=== PATIENT | male | born 1985 | race Caucasian/White ===

== ENCOUNTER 2018-04-06 03:01 | Emergency (ER) | payer MEDICARE, SELFPAY ==
[2018-04-06 03:02] VITALS: BP 115/79; PULSE 95; RESP 17; TEMP 36.8; O2SAT 97; BMI 23.1
--- NOTE | 2018-04-06 03:49 | ED.DCSUM_ITS ---
- ER Visit Summary Date of Service: 04/06/18 Chief Complaint: Bug bite History of Present Illness: The patient is a 33 M presenting for evaluation due to concern for bug bite. Patient states that couple of days ago he was exposed to multiple ticks. He states that he got at least 3 or 4 of them off of him, but one did actually embedded in his left underarm. He reports that in the last couple days he has been having some subjective malaise nausea but denies any presence of fevers. He does endorse that he has been having some myalgias associated with this. He was concerned tonight because he noticed a potential bite on his left posterior shoulder. He does not remember being bitten by anything there, but states that there is a burning sensation in that area. He denies any palpitations syncope numbness or weakness. Review of systems otherwise negative. Physical Examination: Vital signs are within normal limits, patient is afebrile. General: Patient is well-nourished well-developed and in no acute distress. Head: Normocephalic, atraumatic Eyes: Pupils equal round and reactive bilaterally, extra occular motion intact bialterally ENT: Moist mucous membranes Neck: Supple, no lymphadenopathy, no JVD, no meningismus CVS: Heart regular rate and rhythm, no murmurs, rubs or gallops, radial pulses 2 + bilaterally Resp: Respirations nondistressed, lung sounds clear bilaterally Abdomen: Soft, nontender, nondistended, no palpable masses, normal bowel sounds Back: Nontender Extremities: Nontender, atraumatic, active full range of motion, no peripheral edema Skin: warm, no rashes, no petechia, no evidence of erythema migrans, there is a small pustule versus bite wound over the patient's left posterior shoulder without any evidence of surrounding erythema drainage induration or fluctuance Neuro: Alert and oriented x 4, CN 2-12 intact, no lateralizing neurological defecits Psyc: Normal affect Test Results: None indicated Emergency Department Course and Treatment: Patient presented with some constitutional symptoms after being exposed to a tick. The patient's current bite really does not seem to be associated with anything that would seem high risk for Lyme disease, but the patient does endorse that he has had multiple tick bites I will treat him empirically with doxycycline and I recommended that he follow-up with his primary care doctor. Disposition: Discharge Impression: 1. Bug bite 2. Tick exposure This note was generated with [employer] dictation software. It may contain incorrect words, spelling, and punctuation that were not noted in review of the chart prior to signing ED Disposition - Plan for ED Patient: Disposition: Home or Assisted Living Chief Complaint: Bite Diagnosis: Tick bite Instructions: ED Bite Tick Abx Tx Prescriptions: Doxycycline Monohydrate 100 mg PO BID #28 cap Referrals: Delmy Martini, TON-C [Primary Care Provider] - 1-2 Weeks
[2018-04-06] MEDS: Doxycycline 100 MG CAPSULE PO (03:54)
[2018-04-06 03:55] VITALS: RESP 18; TEMP 36.6
== END 2018-04-06 03:59 | disposition home or self-care (01) ==
PROVIDERS: Emergency Provider Emergency Medicine; Family Provider Nurse Practitioner Family; PCP Nurse Practitioner Family
DX: S40.262A Insect bite (nonvenomous) of left shoulder, initial encounter (principal); S40.862A Insect bite (nonvenomous) of left upper arm, initial encounter; W57.XXXA Bitten or stung by nonvenomous insect and other nonvenomous arthropods, initial encounter; Y93.9 Activity, unspecified; Y92.9 Unspecified place or not applicable; Z72.0 Tobacco use
CPT/HCPCS: 99283

== ENCOUNTER 2018-05-12 19:21 | Emergency (ER) | payer MEDICARE, SELFPAY ==
[2018-05-12 19:22] VITALS: BP 106/61; PULSE 88; RESP 15; TEMP 36.2; O2SAT 97; BMI 22.2
--- NOTE | 2018-05-12 19:34 | ED.VISSUMM ---
- ER Visit Summary Date of Service: 05/12/18 Chief Complaint: Gingival abscess History of Present Illness: The patient is a 33 M who has a gingival abscess. It broke open last night. He felt feverish but also had chills. He took Tylenol without any relief. He is seen his dentist tomorrow morning at 8:30 AM. He is taking his son's leftover amoxicillin. Physical Examination: Vital signs are reviewed. Mouth exam reveals a gingival abscess on the right lower side. It is draining. He also has tooth tenderness around that area. No cervical lymphadenopathy. No facial swelling Test Results: None performed Emergency Department Course and Treatment: Patient will be treated with clindamycin and Wellpinit here. Clindamycin and naproxen for home. He will follow up with his dentist tomorrow Treatment Plan: [] Disposition: Discharge Impression: Gingival abscess This note was generated with [employer] dictation software. It may contain incorrect words, spelling, and punctuation that were not noted in review of the chart prior to signing ED Disposition - Plan for ED Patient: Chief Complaint: Dental Referrals: Delmy Martini NP-C [Primary Care Provider] -
--- NOTE | 2018-05-12 19:36 | DCINST.ED_ITS ---
ED Disposition - Plan for ED Patient: Disposition: Home or Assisted Living Chief Complaint: Dental Instructions: ED Abscess Dental Prescriptions: Naproxen [Naprosyn] 500 mg PO BID PRN #20 tab Clindamycin [Cleocin] 300 mg PO 4X/DAY #80 cap Referrals: Delmy Martini, ASSISTANT [employer]SE SUPERINTENDENT-C [Primary Care Provider] -
[2018-05-12 19:41] VITALS: BP 110/70; BP 115/75; PULSE 80; RESP 14; O2SAT 98; O2SAT 99
[2018-05-12] MEDS: HYDROcodone Bitartrate/Apap 5/325 Tablet PO (19:43)
[2018-05-12] MEDS: Clindamycin HCl 150 MG Capsule 300 MG PO (19:44)
== END 2018-05-12 19:45 | disposition home or self-care (01) ==
PROVIDERS: Emergency Provider Emergency Medicine; Family Provider Nurse Practitioner Family; PCP Nurse Practitioner Family
DX: K05.219 Aggressive periodontitis, localized, unspecified severity (principal); Z72.0 Tobacco use
CPT/HCPCS: 99282

== ENCOUNTER 2018-05-20 13:17 | Emergency (ER) | payer MEDICARE, SELFPAY ==
[2018-05-20 13:17] VITALS: BP 108/68; PULSE 88; RESP 16; TEMP 36.7; O2SAT 100; BMI 24.0
--- NOTE | 2018-05-20 13:33 | EKG12_ITS ---
Test Reason : FATIGUE Blood Pressure : / mmHG Vent. Rate : 061 BPM Atrial Rate : 061 BPM P-R Int : 154 ms QRS Dur : 090 ms QT Int : 378 ms P-R-T Axes : 051 081 038 degrees QTc Int : 380 ms Normal sinus rhythm Normal ECG Confirmed by SAMEERA ODELL, OLGA ([id number]), desk editor JAZMIN SEVERINO ([id number]) on 05/23/2018 1:23:56 PM Referred By: Confirmed By:OLGA BRASHER MD
--- NOTE | 2018-05-20 13:33 | RAD_ITS ---
STUDY: X-RAY CHEST REASON FOR EXAM: Male, 33 years old. Generalized weakness times one month. TECHNIQUE: AP upright portable view. COMPARISON: None. FINDINGS: The lungs are clear and expanded. There is no demonstrated pleural abnormality. Normal size heart. Normal mediastinum and rigo. Normal visualized pulmonary arteries. Normal visualized aortic arch and descending thoracic aorta. Normal visualized thoracic spine. Normal visualized ribs, clavicles, and shoulders. There is no demonstrated abnormality of the visualized soft tissue structures of the upper abdomen. RAD/Chest 1 View (Portable) IMPRESSION: Normal x-ray examination of the chest. Electronically Signed: Christiano Hodge MD at 14:45 EDT , Service support ,
--- NOTE | 2018-05-20 13:36 | ED.VISSUMM ---
- ER Visit Summary Date of Service: 05/20/18 Chief Complaint: [] fatigue for over a month History of Present Illness: The patient is a 33 M [] the patient reports generalized fatigue for over a month he has had no fever no cough no chest pain abdominal pain or paresthesias, indicates that he basically just feels tired all the time, nothing triggers or makes it better, he has not followed up with the [facility] primary care physicians he has seen in the past, he indicates he developed a bruise to his right medial upper calf, suffered abrasion to the left index finger needs tetanus update, because of the persistence of the fatigue and the bruise he decided to come in for evaluation He does report he was seen late April for dental abscess he was on clindamycin and that has improved History of schizoaffective disorder, he was on Zyprexa, that caused him to gain a lot of weight so he stopped the diet Zyprexa and now he has lost weight He has no history of HI PE or DVT bowel bladder habits have been normal he has been able to eat and drink he does not know why he has a circular bruise to the right medial upper calf Physical Examination: [] He is in no distress his vital signs are normal his HEENT exam is unremarkable his neck is supple his lungs are clear the heart tones are normal abdomen soft nontender he does have a very fine abrasion minimal laceration to left index finger that has healed days old with no signs of infection full range of motion of both hands he does have a circular bruise to the right upper calf medially the rest of the calf and leg exam unremarkable he has full range of motion normal pulses sensation skin is otherwise normal his head and his neck and his back are unremarkable his neurologic exam shows normal cranial nerves motor, cognitive function NIH of 0 Test Results: [] Emergency Department Course and Treatment: [] His chief complaint is generalized weakness I cannot explain why he has a bruise nor can he this appears to be traumatic and that is almost a perfect [place] at this time screening labs are obtained EKG and duplex scan labs duplex scan chest x-ray EKG are all generally unremarkable see those reports of explained test results to him and his of explained exact etiology of this chronic fatigue is unclear again he does have physicians in the [facility] primary care system he can see for further management of asked him to do that and return for change in symptoms, the family agrees as is the patient Treatment Plan: [] Disposition: [] Home stable Impression: [] Generalized fatigue for over a month etiology unclear This note was generated with [employer] dictation software. It may contain incorrect words, spelling, and punctuation that were not noted in review of the chart prior to signing ED Disposition - Plan for ED Patient: Chief Complaint: Fatigue Referrals: Delmy Martini NP-C [NON-STAFF] -
--- NOTE | 2018-05-20 13:39 | ED.DCSUM_ITS ---
- ER Visit Summary Date of Service: 05/20/18 Chief Complaint: [] fatigue for over a month History of Present Illness: The patient is a 33 M [] the patient reports generalized fatigue for over a month he has had no fever no cough no chest pain abdominal pain or paresthesias, indicates that he basically just feels tired all the time, nothing triggers or makes it better, he has not followed up with the [facility] primary care physicians he has seen in the past, he indicates he developed a bruise to his right medial upper calf, suffered abrasion to the left index finger needs tetanus update, because of the persistence of the fatigue and the bruise he decided to come in for evaluation He does report he was seen late April for dental abscess he was on clindamycin and that has improved History of schizoaffective disorder, he was on Zyprexa, that caused him to gain a lot of weight so he stopped the diet Zyprexa and now he has lost weight He has no history of ND PE or DVT bowel bladder habits have been normal he has been able to eat and drink he does not know why he has a circular bruise to the right medial upper calf Physical Examination: [] He is in no distress his vital signs are normal his HEENT exam is unremarkable his neck is supple his lungs are clear the heart tones are normal abdomen soft nontender he does have a very fine abrasion minimal laceration to left index finger that has healed days old with no signs of infection full range of motion of both hands he does have a circular bruise to the right upper calf medially the rest of the calf and leg exam unremarkable he has full range of motion normal pulses sensation skin is otherwise normal his head and his neck and his back are unremarkable his neurologic exam shows normal cranial nerves motor, cognitive function NIH of 0 Test Results: [] Emergency Department Course and Treatment: [] His chief complaint is generalized weakness I cannot explain why he has a bruise nor can he this appears to be traumatic and that is almost a perfect [place] at this time screening labs are obtained EKG and duplex scan labs duplex scan chest x-ray EKG are all generally unremarkable see those reports of explained test results to him and his of explained exact etiology of this chronic fatigue is unclear again he does have physicians in the [facility] primary care system he can see for further management of asked him to do that and return for change in symptoms, the family agrees as is the patient Treatment Plan: [] Disposition: [] Home stable Impression: [] Generalized fatigue for over a month etiology unclear This note was generated with [employer] dictation software. It may contain incorrect words, spelling, and punctuation that were not noted in review of the chart prior to signing ED Disposition - Plan for ED Patient: Chief Complaint: Fatigue Referrals: Delmy Martini NP-C [NON-STAFF] -
--- NOTE | 2018-05-20 13:40 | NURSING ---
NO OLD EKGS
--- NOTE | 2018-05-20 13:47 | VDLE_ITS ---
Reason For Study: RLE SWELLING RIGHT GSV is normal. CFV is compressible, spontaneous, phasic, competent and demonstrates normal augmentation. FV is compressible, spontaneous, phasic, competent and demonstrates normal augmentation. POP V is compressible, spontaneous, phasic, competent and demonstrates normal augmentation. T/P Trunk is compressible. PTV is compressible. RT PerV is compressible. Procedure Exam performed portable in ED. The exam was diagnostic. A preliminary report was called and/or faxed to ED & PT'S RN. Interpretation Summary Deep veins of the right lower extremity are patent and compressible segmentally. There is no evidence of right lower extremity deep vein thrombosis. Valvular competence appears intact within the proximal deep venous system on the right . The right greater saphenous vein appears patent and compressible segmentally. Ordering Physician: Cesar Lopez Referring Physician: Delmy Martini Performed By: Sylvia Byrnes RDCS, RVT
[2018-05-20] MEDS: Diphth,Pertuss(Acell),Tet Vac 0.5 ML Vial IM (13:48)
[2018-05-20] MEDS: 0.9% Normal Saline 1,000 ML 1000 ML IV (13:48)
[2018-05-20 13:59] LABS: Absolute Lymphocyte Count 2.17 X10^3/ul (0.83-4.51); Absolute Neutrophil Count 5.3 X10^3/uL (2.0-7.7); Basophil# 0.06 X10^3/uL; Basophil% 0.7 % (0-1); Eosinophil# 0.12 X10^3/uL; Eosinophils% 1.4 % (0-5); Hematocrit 43.2 % (40-54); Hemoglobin 14.8 g/dl (13.0-16.5); Lymphocyte # 2.17 X10^3/ul (4.0); Lymphocyte % 24.9 % (19-41); Mean Corp Hgb Conc 34.3 g/gl (32-36); Mean Corpuscular Hgb 28.6 pg (27.0-32.0); Mean Corpuscular Volume 83.4 fL (80-94); Mean Platelet Vol. 9.6 fl (6.2-12.0); Monocyte# 0.95 X10^3/uL; Monocyte% 10.9 % (0-10); Neutrophil # 5.29 X10^3/uL (2.7-7.7); Neutrophil % 60.8 % (47-70); Platelet Count 219 K/mm3 (150-450); RBC Distribution Width SD 42.5 fl (35.1-43.9); Red Blood Count 5.18 M/mm3 (4.6-6.2); White Blood Count 8.7 K/mm3 (4.4-11.0)
[2018-05-20 14:01] LABS: POSITIVE COUNT NO; POSITIVE DIFFERENTIAL NO; POSITIVE MORPHOLOGY NO
[2018-05-20 14:17] LABS: AST(SGOT) 14 U/L (15-37); Alanine Aminotransfer ALT/SGPT 20 U/L (16-61); Albumin, Serum 3.6 g/dL (3.2-5.0); Alkaline Phosphatase 58 U/L (45-117); Anion Gap 4 (5-15); BUN 8 mg/dL (7-18); Bilirubin, Direct 0.18 mg/dL (0.00-0.30); Calcium,Total 8.5 mg/dL (8.5-10.1); Chloride 105 mmol/L (98-107); Creatinine, Serum 0.88 mg/dL (0.70-1.30); EST Glomerular Filtration Rate 107 mL/min (>60); Est Glom Filt Rate - Afr Amer 129 mL/min (>60); Estimated Creatinine Clearance 141.41 ml/min; Globulin 3.5 g/dL (2.2-4.2); Glucose 92 mg/dL (74-106); Lipase 85 U/L (73-393); Potassium 4.3 mmol/L (3.5-5.1); Protein, Total 7.1 g/dL (6.4-8.2); Sodium Level 137 mmol/L (136-145)
--- NOTE | 2018-05-20 14:23 | DCINST.ED_ITS ---
ED Disposition - Plan for ED Patient: Chief Complaint: Fatigue Instructions: ED Weakness [facility]O Referrals: Delmy Martini NP-C [NON-STAFF] - Additional Instructions: Follow-up with the [facility] primary care center in the next few days return for symptoms
[2018-05-20 15:10] VITALS: BP 110/77; PULSE 67; RESP 18; O2SAT 98
== END 2018-05-20 15:11 | disposition home or self-care (01) ==
LOC: ED 14:06
PROVIDERS: Emergency Provider Emergency Medicine
DX: R53.83 Other fatigue (principal); R22.41 Localized swelling, mass and lump, right lower limb; F25.9 Schizoaffective disorder, unspecified
CPT/HCPCS: 71045; 80048; 80076; 83690; 84484; 85025; 90715; 93005; 93971; 96360; 99283; J7030

== ENCOUNTER 2018-06-07 22:55 | Emergency (ER) | payer MEDICARE, SELFPAY ==
[2018-06-07 22:56] VITALS: BP 111/64; PULSE 82; RESP 16; TEMP 36.4; O2SAT 97; BMI 23.1
--- NOTE | 2018-06-07 23:41 | ED.DCSUM_ITS ---
- ER Visit Summary Date of Service: 06/07/18 Chief Complaint: head injury History of Present Illness: The patient is a 33 M who presents for evaluation of head injury after striking his head on a rock. Patient was getting down on his driveway to look under his car when he hit his right posterior head on a decorative rock lining the driveway. Patient denies LOC or any soft tissue injury/tenderness to the scalp. After the incident, which occurred 7 hours [employer]INTENA[employer] , patient had a headache and felt sleepy. He feels like his right ear is popping and drippy. He is currently recovering from a URI. He denies vision changes, nausea/vomiting, weakness/numbness in extremities, difficulty walking, current headache or any other complaints. No hx of bleeding disorder or anticoagulation use. Physical Examination: Vital signs: afebrile, hemodynamically stable, no hypoxia on room air General: well nourished, well developed, in no distress Skin: warm, dry, no rash, no pallor HEENT: normocephalic, atraumatic, no tenderness, soft tissue injury or swelling at site of impact; PERRL, EOMI, vision grossly normal, TMs pearly, alexander, good light reflex, no hemotympanum or otorrhea, moist mucous membranes, no maxillofacial trauma Cardiovascular: regular rate and rhythm without murmurs, trace symmetric pitting pedal edema, 2+ pulses all distal extremities Respiratory: No increased work of breathing, lungs are clear to auscultation bilaterally, no rales, rhonchi or wheezing Abdominal: Abdomen is soft, nontender with normoactive bowel sounds, no guarding or rebound, no masses MSK: Moves all extremities, no deformities, normal strength Neuro: Awake and alert, oriented ?4. No facial droop, sensation and motor function intact and symmetric Test Results: none indicated Emergency Department Course and Treatment: Patient presents after a minor head trauma with no noted soft tissue injury or currently any symptoms, including no headache. Patient's main concern is the popping in his ear, and we discussed since he has had a URI for several days, the ear complaints are likely related to the URI and not the head injury. Patient has no findings on exam that would be concerning for a basilar skull fracture that would result in ear complaints. Discussed with patient that a head CT is not necessary to evaluate for ICH or skull fracture, but patient was offered one if he absolutely needed it for reassurance. Patient declined. He was given Rx for acetaminophen in case of further headache. Pt dc home. Treatment Plan: [] Disposition: [] Impression: minor head injury This note was generated with [employer] dictation software. It may contain incorrect words, spelling, and punctuation that were not noted in review of the chart prior to signing ED Disposition - Plan for ED Patient: Disposition: Home or Assisted Living Chief Complaint: Head Injury Instructions: ED Concussion Prescriptions: Acetaminophen [Acetaminophen ER] 650 mg PO 4X/DAY PRN PRN #20 tablet.er PRN Reason: Pain Referrals: Loan Nair MD [STAFF PHYSICIAN] - 1 Week if not improving Care Physician,No Primary [Primary Care Provider] - Additional Instructions: Take tylenol as needed for headache. If you have any worsening of your condition or any new concerning symptoms, please return immediately to the emergency department for another evaluation.
--- NOTE | 2018-06-07 23:41 | ED.DEP ---
ED Disposition - Plan for ED Patient: Disposition: Home or Assisted Living Chief Complaint: Head Injury Instructions: ED Concussion Prescriptions: Acetaminophen [Acetaminophen ER] 650 mg PO 4X/DAY PRN PRN #20 tablet.er PRN Reason: Pain Referrals: Care Physician,No Primary [Primary Care Provider] - Loan Nair MD [STAFF PHYSICIAN] - 1 Week if not improving Additional Instructions: Take tylenol as needed for headache. If you have any worsening of your condition or any new concerning symptoms, please return immediately to the emergency department for another evaluation.
[2018-06-07 23:53] VITALS: BP 114/72; PULSE 81; RESP 18; O2SAT 100
--- NOTE | 2018-06-07 23:54 | ED.RN ---
THIS NURSE REVIEWED D/C INSTRUCTIONS WITH PT AND . PT VERBALIZED UNDERSTANDING OF INSTRUCTIONS. PT DENIES FURTHER NEEDS OR QUESTIONS AT THIS TIME. PT AMBULATES FROM ROOM ON OWN WITHOUT ASSISTANCE FROM STAFF
== END 2018-06-07 23:55 | disposition home or self-care (01) ==
PROVIDERS: Emergency Provider Emergency Medicine
DX: S09.90XA Unspecified injury of head, initial encounter (principal); W22.8XXA Striking against or struck by other objects, initial encounter; Y93.89 Activity, other specified; Y92.008 Other place in unspecified non-institutional (private) residence as the place of occurrence of the external cause
CPT/HCPCS: 99282

== ENCOUNTER 2018-06-13 14:09 | Emergency (ER) | payer MEDICARE, SELFPAY ==
[2018-06-13 14:10] VITALS: BP 118/83; PULSE 77; RESP 16; TEMP 36.6; O2SAT 97; BMI 23.2
[2018-06-13] MEDS: Ketorolac 30 MG/ML Syringe IV (14:28)
[2018-06-13] MEDS: Ondansetron 4 MG/2 ML Vial IV (14:28)
[2018-06-13] MEDS: 0.9% Normal Saline 1,000 ML 250 ML IV (14:28)
--- NOTE | 2018-06-13 15:27 | ED.VISSUMM ---
- ER Visit Summary Date of Service: 06/13/18 Chief Complaint: Patient presents with acute right flank pain radiating anteriorly that started this morning at 0500. History of Present Illness: The patient is a 33 M patient appears in discomfort. He reports severe flank pain that started 0500. He denies dysuria, frequency or hematuria. Does report urgency. He reports prior history of renal/ureteral calculi. He does report nausea and vomiting without diarrhea. He denies any trauma. He denies any skin lesions. He denies any respiratory symptoms or shortness of breath. He denies any testicular pain. Physical Examination: Vital signs were noted and unremarkable. Head is atraumatic normocephalic. Pupils are equal round reactive. Extraocular muscles are intact. TMs are pearly white with landmarks noted. Nares patent with no drainage. Posterior pharynx without erythema or exudate. Uvula is midline. There is no dysphonia or dysphasia. Trachea is midline. There is no stridor with auscultation of the neck. Heart is regular without murmur, gallop or rub. S1 and S2 are normal. Lungs are clear to auscultation with good movement of air bilaterally. Patient has pain out of proportion right and left flank. Abdomen is soft nontender bowel sounds are present diminished. There is no evidence of umbilical or inguinal hernia. There is no evidence of trauma. There is no skin lesions to suggest shingles. Test Results: CT of the abdomen pelvis without contrast reveals a punctate stone left kidney Emergency Department Course and Treatment: IV was established he was medicated with Zofran and Toradol for his nausea and pain. CT of the abdomen and pelvis was obtained. CT of the abdomen pelvis reveals no pathology to explain his symptoms. In light of the fact that he has pain out of proportion to CVA tenderness and no prior record of kidney stone question past history and authenticity of his pain. Treatment Plan: NSAIDs for pain since there is no contraindication Disposition: Discharged to home Impression: Acute right flank pain of unknown etiology This note was generated with [employer] dictation software. It may contain incorrect words, spelling, and punctuation that were not noted in review of the chart prior to signing ED Disposition - Plan for ED Patient: Disposition: Home or Assisted Living Chief Complaint: General Illness Instructions: ED Flank Pain Uncertain Cause Prescriptions: Naproxen [Naprosyn] 500 mg PO BID #10 tab Referrals: Care Physician,No Primary [Primary Care Provider] - Teha Kong [NON-STAFF] - 3-5 Days if not improving
[2018-06-13 15:35] LABS: Squamous Epithelial Cells - UA 0 SEEN /hpf (0-5)
[2018-06-13 15:39] LABS: Color, Urine Yellow (Yellow); Glucose, Dipstick Normal (Normal); Ketone-Dipstick 50 mg/dl (Negative); Leukocyte Esterase-Dipstick 25 /ul (Negative); Nitrite-Dipstick Negative (Negative); Occult Blood-Urine 25 /ul (Negative); Protein-Dipstick 30 mg/dl (Negative); Urine Bilirubin Dipstick Negative (Negative); Urine Clarity Sl. Cloudy (Clear); Urine Urobilinogen 1 mg/dl (Normal)
[2018-06-13 15:48] VITALS: BP 118/70; PULSE 62; RESP 18; O2SAT 99
[2018-06-13 15:58] LABS: Bacteria 2+ /hpf (None Seen); Mucous, Urine 3+ /hpf (<or=2+); Red Blood Cells-Urine 0-5 SEEN /hpf (0-5); White Blood Cells 0-5 SEEN /hpf (0-5)
== END 2018-06-13 15:49 | disposition home or self-care (01) ==
PROVIDERS: Emergency Provider Emergency Medicine
DX: R10.9 Unspecified abdominal pain (principal); Z72.0 Tobacco use
CPT/HCPCS: 74176; 81001; 96361; 96374; 96375; 99285; J7030; A4216; J2405